=== PATIENT | male | born 1950 | race Caucasian/White ===

== ENCOUNTER 2017-08-01 23:17 | Emergency (ER) | payer MEDICARE, BC ==
[~2017-08-01] VITALS: Ht 182.9 cm; Wt 88.0 kg
[~2017-08-01 23:17] MED LIST: AMLO5TAB4 PO; AZIT250T PO; BENA1TAB79 PO; GUAI120015 PO; LEVO500T2 PO; LORA-269 PO; METR500T4 PO; NEBI10TA2 PO; PANT-47 PO; SIMV20TA5 PO
[2017-08-01] MEDS ORDERED: normal saline 1000ML IV soln IVB ONE (23:45)
[2017-08-02] MEDS ORDERED: LIDOcaine 1% 30ml vial SQ STA (00:28)
[2017-08-02 00:31] LABS: BASOPHILS % (AUTO) 0.5 % (0-1); EOSINOPHILS # (AUTO) 0.1 X10'3 (0-0.9); EOSINOPHILS % (AUTO) 1.4 % (0-6); HEMATOCRIT 43.5 % (42.0-52.0); LYMPHOCYTES % (AUTO) 15.8 % (21-51); MEAN CORPUSCULAR HEMOGLOBIN 35.9 PG (27.0-31.0); MEAN CORPUSCULAR HGB CONC 34.5 % (33.0-36.5); MEAN CORPUSCULAR VOLUME 104.2 FL (78-98); MEAN PLATELET VOLUME 8.5 FL (7.4-10.4); MONOCYTES # (AUTO) 0.7 X10'3 (0-0.9); MONOCYTES % (AUTO) 11.3 % (2-12); NEUTROPHILS # (AUTO) 4.5 X10'3 (1.8-7.7); PLATELET COUNT 128 X10'3 (140-440); RED BLOOD COUNT 4.18 X10'6 (4.70-6.10); RED CELL DISTRIBUTION WIDTH 14.8 % (11.5-14.5); WHITE BLOOD COUNT 6.4 X10'3 (4.5-11.0)
[2017-08-02] MEDS ORDERED: HYDR-565 PO (00:44)
[2017-08-02 00:46] LABS: ALANINE AMINOTRANSFERASE 62 U/L (12-78); ALBUMIN 3.3 G/DL (3.4-5.0); ALBUMIN/GLOBULIN RATIO 1.2 (1.1-1.5); ALKALINE PHOSPHATASE 94 IU/L (46-116); ANION GAP 16 (8-16); ASPARTATE AMINO TRANSFERASE 53 U/L (10-37); BILIRUBIN,TOTAL 0.6 MG/DL (0.1-1.0); BLOOD UREA NITROGEN 14 MG/DL (7-18); BUN/CREATININE RATIO 9.7 (5.4-32.0); CALCIUM 8.6 MG/DL (8.5-10.1); CHLORIDE 106 MMOL/L (99-107); CREATININE 1.45 MG/DL (0.60-1.10); ETHANOL 0.263 GM/DL (0.0-0.010); GLUCOSE 125 MG/DL (70-104); SODIUM 144 MMOL/L (135-145); TOTAL CARBON DIOXIDE 22.3 MMOL/L (24-32); eGFR 48 ML/MIN
[2017-08-02 00:49] LABS: PROTHROMBIN TIME 10.2 SECONDS (9.0-12.0)
[2017-08-02 01:54] VITALS: BP 130/71
== END 2017-08-02 01:56 | disposition home or self-care (01) ==
LOC: ER 23:18
DX: S82.842A Displaced bimalleolar fracture of left lower leg, initial encounter for closed fracture (principal); S82.435A Nondisplaced oblique fracture of shaft of left fibula, initial encounter for closed fracture; S01.01XA Laceration without foreign body of scalp, initial encounter; F10.129 Alcohol abuse with intoxication, unspecified; E78.00 Pure hypercholesterolemia, unspecified; I10 Essential (primary) hypertension; K21.9 Gastro-esophageal reflux disease without esophagitis; G89.29 Other chronic pain; Z79.899 Other long term (current) drug therapy; Z98.890 Other specified postprocedural states; W01.0XXA Fall on same level from slipping, tripping and stumbling without subsequent striking against object, initial encounter; Y93.89 Activity, other specified; Y92.89 Other specified places as the place of occurrence of the external cause; Y99.8 Other external cause status
CPT/HCPCS: 12002; 29515; 36415; 70450; 72125; 73610; 80053; 80320; 85025; 85610; 96361; 96374; 99285; A6449; J2270; J3490; J7030

== ENCOUNTER 2017-08-03 16:27 | Emergency (ER) | payer MEDICARE, BC ==
[~2017-08-03] VITALS: Ht 182.9 cm; Wt 88.6 kg
[~2017-08-03 16:27] MED LIST changes: +HYDR-565 PO
[2017-08-03 20:01] VITALS: BP 155/95
== END 2017-08-03 20:04 | disposition home or self-care (01) ==
LOC: ER 16:27
DX: S82.841D Displaced bimalleolar fracture of right lower leg, subsequent encounter for closed fracture with routine healing (principal); G89.29 Other chronic pain; I10 Essential (primary) hypertension; E78.00 Pure hypercholesterolemia, unspecified; K21.9 Gastro-esophageal reflux disease without esophagitis; Z98.890 Other specified postprocedural states; Z79.899 Other long term (current) drug therapy; W18.39XD Other fall on same level, subsequent encounter
CPT/HCPCS: 29515; 73630; 99284

== ENCOUNTER 2017-08-06 13:28 | Outpatient (CLI) | payer MEDICARE, BC ==
[~2017-08-06] VITALS: Ht 182.9 cm; Wt 84.3 kg
[2017-08-06 13:42] VITALS: BP 135/82
[2017-08-06 13:51] VITALS: BP 135/82
== END 2017-08-06 15:05 | disposition home or self-care (01) ==
LOC: ORTHO 13:28
PROVIDERS: ATTEND Nurse Practitioner Family
DX: S82.841A Displaced bimalleolar fracture of right lower leg, initial encounter for closed fracture (principal); E78.00 Pure hypercholesterolemia, unspecified; F02.80 Dementia in other diseases classified elsewhere, unspecified severity, without behavioral disturbance, psychotic disturbance, mood disturbance, and anxiety; F32.9 Major depressive disorder, single episode, unspecified; G30.9 Alzheimer's disease, unspecified; G45.9 Transient cerebral ischemic attack, unspecified; E11.51 Type 2 diabetes mellitus with diabetic peripheral angiopathy without gangrene; I11.0 Hypertensive heart disease with heart failure; I50.9 Heart failure, unspecified; I21.9 Acute myocardial infarction, unspecified; I25.10 Atherosclerotic heart disease of native coronary artery without angina pectoris; J44.9 Chronic obstructive pulmonary disease, unspecified; K21.9 Gastro-esophageal reflux disease without esophagitis; Z82.3 Family history of stroke; Z98.890 Other specified postprocedural states; Z82.49 Family history of ischemic heart disease and other diseases of the circulatory system; Z87.19 Personal history of other diseases of the digestive system; X58.XXXA Exposure to other specified factors, initial encounter; Y93.89 Activity, other specified; Y92.89 Other specified places as the place of occurrence of the external cause; Y99.8 Other external cause status
CPT/HCPCS: 29515

== ENCOUNTER 2017-08-10 21:38 | Emergency (ER) | payer MEDICARE, BC ==
[~2017-08-10] VITALS: Ht 182.9 cm; Wt 84.1 kg
[2017-08-10 21:39] VITALS: BP 141/93
== END 2017-08-10 23:08 | disposition home or self-care (01) ==
LOC: ER 21:38
DX: S82.842A Displaced bimalleolar fracture of left lower leg, initial encounter for closed fracture (principal); E78.00 Pure hypercholesterolemia, unspecified; I10 Essential (primary) hypertension; K21.9 Gastro-esophageal reflux disease without esophagitis; F32.9 Major depressive disorder, single episode, unspecified; L40.9 Psoriasis, unspecified; M19.90 Unspecified osteoarthritis, unspecified site; Z79.899 Other long term (current) drug therapy; X58.XXXA Exposure to other specified factors, initial encounter; Y93.89 Activity, other specified; Y92.89 Other specified places as the place of occurrence of the external cause; Y99.8 Other external cause status
CPT/HCPCS: 29515; 99284; A6449

== ENCOUNTER 2017-09-01 12:04 | Day surgery (SDC) | payer MEDICARE, BC ==
[2017-08-30 12:28] LABS: BASOPHILS % (AUTO) 0.4 % (0-1); EOSINOPHILS # (AUTO) 0.2 X10'3 (0-0.9); EOSINOPHILS % (AUTO) 2.1 % (0-6); LYMPHOCYTES % (AUTO) 13.3 % (21-51); MEAN CORPUSCULAR HEMOGLOBIN 36.7 PG (27.0-31.0); MEAN CORPUSCULAR HGB CONC 35.5 % (33.0-36.5); MEAN CORPUSCULAR VOLUME 103.5 FL (78-98); MEAN PLATELET VOLUME 8.4 FL (7.4-10.4); MONOCYTES # (AUTO) 0.8 X10'3 (0-0.9); MONOCYTES % (AUTO) 10.5 % (2-12); NEUTROPHILS # (AUTO) 5.3 X10'3 (1.8-7.7); NEUTROPHILS % (AUTO) 73.7 % (42-75); PRE OP HEMATOCRIT 46.1 % (42.0-52.0); PRE OP HEMOGLOBIN 16.4 g/dL (14.0-17.9); PRE OP PLATELET COUNT 140 X10'3 (140-440); RED BLOOD COUNT 4.45 X10'6 (4.70-6.10)
[2017-08-30 12:43] LABS: ALBUMIN 3.8 G/DL (3.4-5.0); ALBUMIN/GLOBULIN RATIO 1.2 (1.1-1.5); ALKALINE PHOSPHATASE 117 IU/L (46-116); BLOOD UREA NITROGEN 20 MG/DL (7-18); BUN/CREATININE RATIO 18.2 (5.4-32.0); CALCIUM 9.2 MG/DL (8.5-10.1); CHLORIDE 102 MMOL/L (99-107); PRE OP ALT 59 U/L (30-65); PRE OP ANION GAP 9 (8-16); PRE OP AST 53 U/L (10-37); PRE OP BILIRUB, TOTAL 0.9 MG/DL (0.0-1.0); PRE OP GLUCOSE 91 MG/DL (70-104); PRE OP POTASSIUM 4.4 MMOL/L (3.4-5.1); PRE OP SODIUM 140 MMOL/L (135-145); TOTAL CARBON DIOXIDE 28.7 MMOL/L (24-32); eGFR 66 ML/MIN
[~2017-09-01] VITALS: Ht 182.9 cm; Wt 185.0 kg
[2017-09-01] VITALS (10 sets, daily range): BP systolic 125–144; BP diastolic 83–99
[~2017-09-01 12:04] MED LIST changes: -AMLO5TAB4 PO; -AZIT250T PO; +CITA40TA11 PO; +DICL75TA5 PO; +DOCUMENT DATE & TIME OF BETA-BLOCKER PO ONE; -GUAI120015 PO; -HYDR-565 PO; -LEVO500T2 PO; -LORA-269 PO; -METR500T4 PO; -PANT-47 PO; +cefazolin/dext.iso 2gm/50ml 50 ML IV ONE; +famotidine 20mg tablet PO ONE; +ringers solution, lacted 1,000 ML IV SCH; +vancomycin inj 1,500 MG in normal saline 300ml IV soln IV ONE
[2017-09-01] MEDS ORDERED: LIDOcaine 1% (10mg/ml) 2ml vial ONE (12:22)
[2017-09-01] MEDS ORDERED: HYDROcodone/acetaminophen 10/325mg tab PO ONE (14:20)
[2017-09-01] MEDS ORDERED: ePHEDrine 50MG/ML INJ. ONE (15:00)
[2017-09-01] MEDS ORDERED: sevoflurane 250ml liquid IH ONE (15:00)
[2017-09-01] MEDS ORDERED: BUPIVAcaine 0.5% inj/PF 30 ML ONE (15:01)
[2017-09-01] MEDS ORDERED: BUPIVAcaine/PF 2.5 mg/ml (0.25%) 30ml vial ONE ×2 (15:02→15:41)
[2017-09-01] MEDS ORDERED: midazolam 2 mg/2 ml injection ONE ×2 (15:05)
[2017-09-01] MEDS ORDERED: fentaNYL/PF 50MCG/1 ML 2ML syringe ONE ×2 (15:05→15:50)
[2017-09-01] MEDS ORDERED: LIDOcaine 2% (20mg/ml) 5ml vial ONE (15:28)
[2017-09-01] MEDS ORDERED: dexamethasone sod phosphate 4mg/ml inj. ONE (15:28)
[2017-09-01] MEDS ORDERED: propofol inj 20 ML IV ONE (15:28)
[2017-09-01] MEDS ORDERED: ondansetron/PF 4mg/2ml inj ONE (15:31)
[2017-09-01] MEDS ORDERED: ceFAZolin 1000mg inj ONE (15:41)
[2017-09-01] MEDS ORDERED: ringers solution, lacted 1,000 ML IV SCH (15:41)
[2017-09-01] MEDS ORDERED: meperidine/PF 25mg/ml syringe IV PRN ×2 (15:45)
[2017-09-01] MEDS ORDERED: ondansetron/PF 4mg/2ml inj IV PRN (15:45)
[2017-09-01] MEDS ORDERED: morphine 2 MG/ML inj. syringe IV PRN ×2 (15:45)
[2017-09-01] MEDS ORDERED: proCHLORperazine 10 MG/2 ml inj IV PRN (15:45)
[2017-09-01] MEDS: meperidine/PF 25mg/ml syringe IV PRN ×2 (16:48→17:16)
== END 2017-09-01 17:53 | disposition home or self-care (01) ==
LOC: PAS 12:04
PROVIDERS: ATTEND Orthopaedic Surgery
DX: S82.61XA Displaced fracture of lateral malleolus of right fibula, initial encounter for closed fracture (principal); E78.00 Pure hypercholesterolemia, unspecified; I10 Essential (primary) hypertension; K21.9 Gastro-esophageal reflux disease without esophagitis; M19.90 Unspecified osteoarthritis, unspecified site; F32.9 Major depressive disorder, single episode, unspecified; G89.29 Other chronic pain; Z98.890 Other specified postprocedural states; Z72.89 Other problems related to lifestyle; Z79.899 Other long term (current) drug therapy; X50.1XXA Overexertion from prolonged static or awkward postures, initial encounter; Y93.9 Activity, unspecified; Y92.9 Unspecified place or not applicable
CPT/HCPCS: 27792; 36415; 71046; 80053; 85025; A6449; C1713; J0690; J1100; J2001; J2175; J2250; J2405; J2704; J3010; J3370; J3490; J7120; A7000

== ENCOUNTER 2017-09-15 11:23 | Outpatient (CLI) | payer MEDICARE, BC ==
[2017-09-15 11:23] VITALS: BP 122/75
[~2017-09-15 11:23] MED LIST changes: -DOCUMENT DATE & TIME OF BETA-BLOCKER PO ONE; -cefazolin/dext.iso 2gm/50ml 50 ML IV ONE; -famotidine 20mg tablet PO ONE; -ringers solution, lacted 1,000 ML IV SCH; -vancomycin inj 1,500 MG in normal saline 300ml IV soln IV ONE
== END 2017-09-15 12:07 | disposition home or self-care (01) ==
LOC: ORTHO 11:23
PROVIDERS: ATTEND Nurse Practitioner Family
DX: S82.841D Displaced bimalleolar fracture of right lower leg, subsequent encounter for closed fracture with routine healing (principal); E78.00 Pure hypercholesterolemia, unspecified; I10 Essential (primary) hypertension; K21.9 Gastro-esophageal reflux disease without esophagitis; K85.90 Acute pancreatitis without necrosis or infection, unspecified; X58.XXXD Exposure to other specified factors, subsequent encounter
CPT/HCPCS: A6449

== ENCOUNTER 2017-09-24 08:53 | Outpatient (CLI) | payer MEDICARE, BC ==
[2017-09-24 09:01] VITALS: BP 112/70
== END 2017-09-24 09:30 | disposition home or self-care (01) ==
LOC: ORTHO 08:53
PROVIDERS: ATTEND Nurse Practitioner Family
DX: S82.841G Displaced bimalleolar fracture of right lower leg, subsequent encounter for closed fracture with delayed healing (principal); E78.00 Pure hypercholesterolemia, unspecified; I10 Essential (primary) hypertension; K21.9 Gastro-esophageal reflux disease without esophagitis; K85.90 Acute pancreatitis without necrosis or infection, unspecified; X58.XXXD Exposure to other specified factors, subsequent encounter
CPT/HCPCS: 99213

== ENCOUNTER 2017-10-17 13:00 | Emergency (ER) | payer MEDICARE, BC ==
[~2017-10-17] VITALS: Ht 182.9 cm; Wt 82.1 kg
[2017-10-17 13:27] VITALS: BP 133/82
[2017-10-17] MEDS ORDERED: HYDR-565 PO (15:14)
== END 2017-10-17 15:30 | disposition home or self-care (01) ==
LOC: ER 13:02
DX: M25.571 Pain in right ankle and joints of right foot (principal); E78.00 Pure hypercholesterolemia, unspecified; I10 Essential (primary) hypertension; K21.9 Gastro-esophageal reflux disease without esophagitis; M19.90 Unspecified osteoarthritis, unspecified site; Z98.890 Other specified postprocedural states; Z79.899 Other long term (current) drug therapy
CPT/HCPCS: 73610; 99284

== ENCOUNTER 2017-10-22 12:58 | Outpatient (CLI) | payer MEDICARE, BC ==
[2017-10-22 12:57] VITALS: BP 140/99
[~2017-10-22 12:58] MED LIST changes: +HYDR-565 PO
== END 2017-10-22 13:55 | disposition home or self-care (01) ==
LOC: ORTHO 12:58
PROVIDERS: ATTEND Nurse Practitioner Family
DX: S82.841G Displaced bimalleolar fracture of right lower leg, subsequent encounter for closed fracture with delayed healing (principal); M77.31 Calcaneal spur, right foot; E78.00 Pure hypercholesterolemia, unspecified; I10 Essential (primary) hypertension; K21.9 Gastro-esophageal reflux disease without esophagitis; K85.90 Acute pancreatitis without necrosis or infection, unspecified; Z60.2 Problems related to living alone; X58.XXXD Exposure to other specified factors, subsequent encounter
CPT/HCPCS: 73600; 99213

== ENCOUNTER 2017-11-12 14:08 | Outpatient (CLI) | payer MEDICARE, BC ==
[~2017-11-12 14:08] MED LIST changes: -HYDR-565 PO
[2017-11-12 14:10] VITALS: BP 118/69
== END 2017-11-12 14:55 | disposition home or self-care (01) ==
LOC: ORTHO 14:08
PROVIDERS: ATTEND Nurse Practitioner Family
DX: S82.841D Displaced bimalleolar fracture of right lower leg, subsequent encounter for closed fracture with routine healing (principal); M19.071 Primary osteoarthritis, right ankle and foot; E78.00 Pure hypercholesterolemia, unspecified; I10 Essential (primary) hypertension; K21.9 Gastro-esophageal reflux disease without esophagitis; K85.90 Acute pancreatitis without necrosis or infection, unspecified; Z60.2 Problems related to living alone; X58.XXXD Exposure to other specified factors, subsequent encounter
CPT/HCPCS: 73600; 99213

== ENCOUNTER 2018-03-31 00:13 | Inpatient (IN) | payer MEDICARE, BC ==
[~2018-03-31] VITALS: Ht 182.9 cm; Wt 84.1 kg
[2018-03-31 00:38] LABS: BASOPHILS # (AUTO) 0.1 X10'3 (0-0.2); BASOPHILS % (AUTO) 0.5 % (0-1); EOSINOPHILS % (AUTO) 0.2 % (0-6); HEMATOCRIT 36.5 % (42.0-52.0); HEMOGLOBIN 11.8 g/dl (14.0-17.9); LYMPHOCYTES # (AUTO) 0.9 X10'3 (1.1-4.8); LYMPHOCYTES % (AUTO) 7.4 % (21-51); MEAN CORPUSCULAR HEMOGLOBIN 26.1 PG (27.0-31.0); MEAN CORPUSCULAR HGB CONC 32.4 % (33.0-36.5); MEAN CORPUSCULAR VOLUME 80.5 FL (78-98); MEAN PLATELET VOLUME 8.8 FL (7.4-10.4); MONOCYTES # (AUTO) 0.9 X10'3 (0-0.9); MONOCYTES % (AUTO) 7.6 % (2-12); NEUTROPHILS # (AUTO) 9.7 X10'3 (1.8-7.7); NEUTROPHILS % (AUTO) 84.3 % (42-75); PLATELET COUNT 171 X10'3 (140-440); RED BLOOD COUNT 4.53 X10'6 (4.70-6.10); RED CELL DISTRIBUTION WIDTH 17.6 % (11.5-14.5); WHITE BLOOD COUNT 11.6 X10'3 (4.5-11.0)
[2018-03-31] MEDS ORDERED: morphine 4 MG/ML inj SYRINge IV ONE (00:40)
[2018-03-31] MEDS ORDERED: ondansetron/PF 4mg/2ml inj IV ONE (00:40)
[2018-03-31] MEDS ORDERED: normal saline 1000ML IV soln IVB ONE (00:40)
[2018-03-31 00:52] LABS: ALANINE AMINOTRANSFERASE 59 U/L (12-78); ALBUMIN 3.5 G/DL (3.4-5.0); ALBUMIN/GLOBULIN RATIO 1.1 (1.1-1.5); ALKALINE PHOSPHATASE 92 IU/L (46-116); ANION GAP 10 (8-16); ASPARTATE AMINO TRANSFERASE 58 U/L (10-37); BILIRUBIN,TOTAL 0.4 MG/DL (0.1-1.0); BLOOD UREA NITROGEN 19 MG/DL (7-18); BUN/CREATININE RATIO 16.4 (5.4-32.0); CALCIUM 8.9 MG/DL (8.5-10.1); CHLORIDE 101 MMOL/L (99-107); CREATININE 1.16 MG/DL (0.60-1.10); GLUCOSE 101 MG/DL (70-104); POTASSIUM 5.2 MMOL/L (3.5-5.1); SODIUM 136 MMOL/L (135-145); TOTAL CARBON DIOXIDE 24.6 MMOL/L (24-32); TOTAL PROTEIN 6.7 G/DL (6.4-8.2); eGFR 62 ML/MIN
[2018-03-31 00:57] LABS: CREATINE KINASE 422 U/L (39-308); ETHANOL 0.106 GM/DL (0.0-0.010); MAGNESIUM 1.7 MG/DL (1.5-2.4)
[2018-03-31 01:05] LABS: ACETAMINOPHEN < 2.0 UG/ML (10-30)
[2018-03-31 01:26] LABS: PARTIAL THROMBOPLASTIN TIME 24 SECONDS (22-32)
[2018-03-31 01:59] LABS: CLARITY,URINE CLEAR (Clear); COLOR,URINE YELLOW (Yellow); GLUCOSE, URINE NEGATIVE (Neg); KETONES,URINE 15 mg/dl (Neg); LEUKOCYTE ESTERASE ,URINE NEGATIVE (Neg); NITRITES, URINE NEGATIVE (Neg); OCCULT BLOOD,URINE NEGATIVE (Neg); PH,URINE 5.5 (4.8-8.0); PROTEIN,URINE NEGATIVE (Neg); UROBILINOGEN,URINE 0.2 E.U/dL (0.2-1.0)
[2018-03-31 02:01] LABS: UA COLLECTION TYPE VOIDED
[2018-03-31 02:31] LABS: URINE AMPHETAMINE SCREEN NEGATIVE (Neg); URINE BARBITUATE SCREEN NEGATIVE (Neg); URINE BENZODIAZEPINES SCREEN NEGATIVE (Neg); URINE CANNABINOID SCREEN NEGATIVE (Neg); URINE COCAINE SCREEN NEGATIVE (Neg); URINE METHADONE SCREEN NEGATIVE (Neg); URINE OPIATE SCREEN POSITIVE (Neg); URINE PHENCYCLIDINE SCREEN NEGATIVE (Neg)
[2018-03-31] MEDS ORDERED: normal saline 1000ml 1,000 ML IV SCH (04:34)
[2018-03-31] MEDS ORDERED: mag hydrox/Alum hydrox/simeth 30ml oral suspension PO PRN (04:35)
[2018-03-31] MEDS ORDERED: acetaminophen 325mg tablet PO PRN (04:35)
[2018-03-31] MEDS ORDERED: ondansetron/PF 4mg/2ml inj IV PRN (04:35)
[2018-03-31] MEDS ORDERED: magnesium hydroxide 30ml (MOM) UD suspension PO PRN (04:35)
[2018-03-31] MEDS ORDERED: morphine 4 MG/ML inj SYRINge IV PRN (04:35)
[2018-03-31] MEDS ORDERED: HYDROcodone/acetaminophen 5mg/325mg tablet PO PRN (04:35)
[2018-03-31] MEDS ORDERED: iohexol 350MG/ML 100ml bottle IV ONE (05:32)
[2018-03-31] MEDS: morphine 4 MG/ML inj SYRINge IV PRN ×2 (05:34→20:25)
[2018-03-31 06:00] VITALS: BP 122/77
[2018-03-31] MEDS: lisinopril 20mg tablet PO SCH (07:19)
[2018-03-31] MEDS: HYDROchlorothiazide 12.5mg capsule PO SCH (07:19)
[2018-03-31] MEDS: citalopram 20mg tablet PO SCH (07:20)
[2018-03-31] MEDS: HYDROcodone/acetaminophen 10/325mg tab PO PRN ×3 (07:20→22:11)
[2018-03-31] MEDS: heparin, porcine 5000 units/ml vial SQ SCH ×2 (07:20→20:04)
[2018-03-31] MEDS: DICLOFENAC SODIUM 75 MG PO SCH (07:23)
[2018-03-31] MEDS ORDERED: non-formulary drug (Diclofenac Sodium 1 TAB) PO SCH (08:00)
[2018-03-31] MEDS ORDERED: dextrose 50%-water 50ml dispensing syringe IV PRN (10:25)
[2018-03-31 11:00] VITALS: BP 114/79
[2018-03-31 11:15] VITALS: BP 114/79
[2018-03-31] MEDS: normal saline 1000ml 1,000 ML IV SCH ×2 (17:07→20:30)
[2018-03-31 18:00] VITALS: BP 118/80
[2018-03-31] MEDS: LIDOcaine 5% patch TP SCH (20:30)
[2018-03-31] MEDS ORDERED: atorvastatin 10mg tablet PO SCH (21:00)
[2018-03-31 22:00] VITALS: BP 124/74
[2018-04-01] MEDS: morphine 4 MG/ML inj SYRINge IV PRN ×3 (00:23→09:56)
[2018-04-01] MEDS: normal saline 1000ml 1,000 ML IV SCH (03:08)
[2018-04-01] MEDS: HYDROcodone/acetaminophen 10/325mg tab PO PRN ×3 (03:09→12:16)
[2018-04-01 06:00] VITALS: BP 115/76
[2018-04-01 07:20] LABS: BASOPHILS % (AUTO) 0.1 % (0-1); EOSINOPHILS # (AUTO) 0.1 X10'3 (0-0.9); EOSINOPHILS % (AUTO) 1.7 % (0-6); HEMATOCRIT 33.3 % (42.0-52.0); HEMOGLOBIN 10.7 g/dl (14.0-17.9); LYMPHOCYTES # (AUTO) 0.9 X10'3 (1.1-4.8); LYMPHOCYTES % (AUTO) 17.5 % (21-51); MEAN CORPUSCULAR HEMOGLOBIN 25.6 PG (27.0-31.0); MEAN CORPUSCULAR HGB CONC 32.1 % (33.0-36.5); MEAN CORPUSCULAR VOLUME 79.7 FL (78-98); MEAN PLATELET VOLUME 8.7 FL (7.4-10.4); MONOCYTES # (AUTO) 0.7 X10'3 (0-0.9); MONOCYTES % (AUTO) 13.4 % (2-12); NEUTROPHILS # (AUTO) 3.4 X10'3 (1.8-7.7); NEUTROPHILS % (AUTO) 67.3 % (42-75); PLATELET COUNT 133 X10'3 (140-440); RED BLOOD COUNT 4.18 X10'6 (4.70-6.10)
[2018-04-01 07:41] LABS: ALANINE AMINOTRANSFERASE 47 U/L (12-78); ALBUMIN 2.9 G/DL (3.4-5.0); ALKALINE PHOSPHATASE 72 IU/L (46-116); ANION GAP 8 (8-16); ASPARTATE AMINO TRANSFERASE 26 U/L (10-37); BILIRUBIN,TOTAL 0.5 MG/DL (0.1-1.0); BLOOD UREA NITROGEN 12 MG/DL (7-18); CALCIUM 8.4 MG/DL (8.5-10.1); CHLORIDE 102 MMOL/L (99-107); GLUCOSE 96 MG/DL (70-104); POTASSIUM 3.8 MMOL/L (3.5-5.1); SODIUM 137 MMOL/L (135-145); TOTAL CARBON DIOXIDE 27.1 MMOL/L (24-32); TOTAL PROTEIN 5.9 G/DL (6.4-8.2); eGFR 74 ML/MIN
[2018-04-01] MEDS: heparin, porcine 5000 units/ml vial SQ SCH (07:50)
[2018-04-01] MEDS: HYDROchlorothiazide 12.5mg capsule PO SCH (07:51)
[2018-04-01] MEDS: DICLOFENAC SODIUM 75 MG PO SCH (07:51)
[2018-04-01] MEDS: lisinopril 20mg tablet PO SCH (07:51)
[2018-04-01] MEDS: citalopram 20mg tablet PO SCH (07:51)
[2018-04-01] MEDS: LIDOcaine 5% patch TP SCH (07:55)
[2018-04-01 10:00] VITALS: BP 101/66
[2018-04-01] MEDS ORDERED: HYDR-569 PO (15:35)
== END 2018-04-01 15:55 | disposition home or self-care (01) | DRG 200 ==
LOC: ER 00:13 → ED HOLD 04:34 → PCU 3S 06:00 → ORTHO 4S 11:45
PROVIDERS: ADMIT Internal Medicine; ATTEND Internal Medicine
PROC: B3251ZZ Computerized Tomography (CT Scan) of Bilateral Common Carotid Arteries using Low Osmolar Contrast (ICD-10-PCS; principal; 2018-03-31)
PROC: B32G1ZZ Computerized Tomography (CT Scan) of Bilateral Vertebral Arteries using Low Osmolar Contrast (ICD-10-PCS; 2018-03-31)
PROC: B3281ZZ Computerized Tomography (CT Scan) of Bilateral Internal Carotid Arteries using Low Osmolar Contrast (ICD-10-PCS; 2018-03-31)
DX: J93.9 Pneumothorax, unspecified (principal); J98.11 Atelectasis; E87.5 Hyperkalemia; R09.02 Hypoxemia; E78.00 Pure hypercholesterolemia, unspecified; F32.9 Major depressive disorder, single episode, unspecified; M47.9 Spondylosis, unspecified; Y90.0 Blood alcohol level of less than 20 mg/100 ml; I45.10 Unspecified right bundle-branch block; M54.6 Pain in thoracic spine; F10.10 Alcohol abuse, uncomplicated; W18.39XA Other fall on same level, initial encounter; Y93.01 Activity, walking, marching and hiking; I10 Essential (primary) hypertension; K21.9 Gastro-esophageal reflux disease without esophagitis; N28.9 Disorder of kidney and ureter, unspecified; S23.41XA Sprain of ribs, initial encounter; Z82.3 Family history of stroke; Z82.49 Family history of ischemic heart disease and other diseases of the circulatory system; Z80.9 Family history of malignant neoplasm, unspecified; Z79.899 Other long term (current) drug therapy; Y92.89 Other specified places as the place of occurrence of the external cause; Y99.8 Other external cause status
CPT/HCPCS: 36415; 70450; 70498; 71045; 71046; 71250; 80053; 80305; 80320; 80329; 81003; 82140; 82550; 83735; 84132; 84484; 85025; 85610; 85730; 87070; 93005; 93306; 96361; 96374; 96375; 97161; 97530; 99285; J1644; J2270; J2405; J7030; Q9967

== ENCOUNTER 2019-11-09 12:56 | Emergency (ER) | payer MEDICARE, BC ==
[~2019-11-09] VITALS: Ht 182.9 cm; Wt 77.0 kg
[~2019-11-09 12:56] MED LIST changes: -DICL75TA5 PO; +HYDR-4383 PO; +SIMV-42 PO; -SIMV20TA5 PO
[2019-11-09 13:15] VITALS: BP 161/115
[2019-11-09] MEDS ORDERED: LIDOcaine 1% W/epiNEPHrine 1:200,000 10ml vial IJ ONE (13:40)
[2019-11-09] MEDS ORDERED: DOXY100C43 PO (13:42)
== END 2019-11-09 14:23 | disposition home or self-care (01) ==
LOC: ER 12:57
DX: L02.415 Cutaneous abscess of right lower limb (principal); E78.00 Pure hypercholesterolemia, unspecified; I10 Essential (primary) hypertension; K21.9 Gastro-esophageal reflux disease without esophagitis; F32.9 Major depressive disorder, single episode, unspecified; Z98.890 Other specified postprocedural states; Z79.899 Other long term (current) drug therapy
CPT/HCPCS: 10060; 99282; 99283

== ENCOUNTER 2023-01-16 01:23 | Emergency (ER) | payer BC, MEDICARE ==
[~2023-01-16] VITALS: Ht 182.9 cm; Wt 95.0 kg
[~2023-01-16 01:23] MED LIST changes: -BENA1TAB79 PO; +BENA1TAB88 PO; +CITA-119 PO; -CITA40TA11 PO
[2023-01-16 02:20] LABS: BASOPHILS % (AUTO) 0.3 % (0-1); EOSINOPHILS % (AUTO) 0.2 % (0-6); HEMATOCRIT 51.9 % (42.0-52.0); HEMOGLOBIN 17.9 g/dl (14.0-17.9); LYMPHOCYTES # (AUTO) 0.8 X10'3 (1.1-4.8); LYMPHOCYTES % (AUTO) 5.5 % (21-51); MEAN CORPUSCULAR HEMOGLOBIN 37.4 PG (27.0-31.0); MEAN CORPUSCULAR HGB CONC 34.4 g/dL (33.0-36.5); MEAN CORPUSCULAR VOLUME 108.7 FL (78-98); MEAN PLATELET VOLUME 9.2 FL (7.4-10.4); MONOCYTES # (AUTO) 0.9 X10'3 (0-0.9); MONOCYTES % (AUTO) 6.8 % (2-12); NEUTROPHILS # (AUTO) 12.1 X10'3 (1.8-7.7); NEUTROPHILS % (AUTO) 87.2 % (42-75); PLATELET COUNT 158 X10'3 (140-440); RED BLOOD COUNT 4.78 X10'6 (4.70-6.10); RED CELL DISTRIBUTION WIDTH 14.1 % (11.5-14.5); WHITE BLOOD COUNT 13.9 X10'3 (4.5-11.0)
[2023-01-16 02:33] LABS: ALANINE AMINOTRANSFERASE 22 U/L (12-78); ALBUMIN 3.7 G/DL (3.4-5.0); ALKALINE PHOSPHATASE 117 IU/L (46-116); ANION GAP 15 (8-16); ASPARTATE AMINO TRANSFERASE 25 U/L (10-37); BILIRUBIN,TOTAL 0.9 MG/DL (0.1-1.0); BLOOD UREA NITROGEN 9 MG/DL (7-18); BUN/CREATININE RATIO 10.7 (10.0-20.0); CALCIUM 9.2 MG/DL (8.5-10.1); CHLORIDE 102 MMOL/L (99-107); CREATININE 0.84 MG/DL (0.60-1.10); GLUCOSE 150 MG/DL (70-104); LIPASE < 50 U/L (73-393); POTASSIUM 3.8 MMOL/L (3.5-5.1); SODIUM 140 MMOL/L (135-145); TOTAL PROTEIN 7.4 G/DL (6.4-8.2); eGFR 89 ML/MIN
[2023-01-16] MEDS ORDERED: morphine 4 MG/ML inj SYRINge IV STA (02:55)
[2023-01-16] MEDS ORDERED: ondansetron/PF 4mg/2ml inj IV STA (02:55)
[2023-01-16] MEDS ORDERED: normal saline 1000ml 1,000 ML IVB ONE (03:00)
--- NOTE | 2023-01-16 03:30 | NUR ---
residential tech at bedside
[2023-01-16] MEDS ORDERED: piperacillin/tazo 3.375gm/50ml 50 ML IV ONE (04:48)
[2023-01-16 05:00] VITALS: BP 160/100
--- NOTE | 2023-01-16 05:00 | NUR ---
pt aware he needs to be admitted to hospital, he wants to leave "I wasn't prepared...I have my dog in the car...I need to get my house ready". Pt said he has no one to come get his dog, very insistent on leaving "I will come back tomorrow at 1000". Dr Mosquera aware and talked with pt as well, explained risks of leaving up to and including . Pt stills wants to leave. He signed AMA form
[2023-01-17] MEDS ORDERED: NO HOME MEDS (05:09)
[2023-01-19] MEDS ORDERED: SACC250C PO (10:30)
[2023-01-19] MEDS ORDERED: AMOX-580 PO (10:30)
[2023-01-19] MEDS ORDERED: ONDA4TAB12 PO (10:30)
[2023-01-19] MEDS ORDERED: POTA-197 PO (10:30)
[2023-01-19] MEDS ORDERED: HYDR-3964 PO (10:30)
== END 2023-01-16 05:10 | disposition left against medical advice (07) ==
LOC: ER 01:24
DX: R10.11 Right upper quadrant pain (principal)
CPT/HCPCS: 36415; 76705; 80053; 83690; 85025; 96361; 96374; 96375; 99285; J2270; J2405; J7030; 99281

== ENCOUNTER 2023-05-18 18:59 | Emergency (ER) | payer BC ==
[~2023-05-18 18:59] MED LIST changes: +AMOX-580 PO; -BENA1TAB88 PO; -CITA-119 PO; +HYDR-3964 PO; -HYDR-4383 PO; -NEBI10TA2 PO; +ONDA4TAB12 PO; +POTA-197 PO; +SACC250C PO; -SIMV-42 PO
--- NOTE | 2023-05-18 19:02 | NUR ---
PATIENT STATES HE SAW THE WAITING ROOM AND DOES NOT WANT TO WAIT. PATIENT TAKEN OUT TO CAR VIA WHEELCHAIR WITH HIS .
== END 2023-05-18 19:03 | disposition left against medical advice (07) ==
LOC: ER 19:00
DX: M54.9 Dorsalgia, unspecified (principal); Z53.21 Procedure and treatment not carried out due to patient leaving prior to being seen by health care provider